=== PATIENT | male | born 2000 | race Asian ===

== ENCOUNTER 2020-05-10 00:41 | Emergency (ER) | payer SELFPAY ==
[~2020-05-10] VITALS: Ht 177.8 cm; Wt 77.1 kg
[2020-05-10 00:51] VITALS: BP 124/77; Ht 177.8 cm; Wt 77.1 kg
== END 2020-05-10 02:23 | disposition left against medical advice (07) ==
LOC: ED 00:41
DX: Z53.21 Procedure and treatment not carried out due to patient leaving prior to being seen by health care provider (principal)